=== PATIENT | female | born 1965 ===

== ENCOUNTER 2020-09-05 11:00 | Inpatient (IN) | payer OTHER ==
[~2020-09-05] VITALS: Ht 162.6 cm; Wt 81.6 kg
[2020-09-05] MEDS ORDERED: LIPITOR40 M1 PO (15:05)
[2020-09-05] MEDS ORDERED: CARVEDILOL25 M1 PO (15:05)
[2020-09-05] MEDS ORDERED: GABAPENTIN300 M2 PO (15:06)
[2020-09-05] MEDS ORDERED: CARDURA XL4 MG PO (15:06)
[2020-09-05] MEDS ORDERED: DULCOLAX5 MG PO (15:07)
[2020-09-05] MEDS ORDERED: LEVOTHYROXINE25 MCG PO (15:07)
[2020-09-05] MEDS ORDERED: LOSARTAN POTAS100 MG PO (15:07)
[2020-09-05] MEDS ORDERED: HYDRALAZINE HC100 MG PO (15:07)
[2020-09-05] MEDS ORDERED: KAPVAY0.1 MG PO (15:08)
[2020-09-05] MEDS ORDERED: LANTUS SOL100 UNIT/1 (15:08)
[2020-09-05] MEDS ORDERED: HUMULIN R500 UNIT/2 (15:09)
[2020-09-16] MEDS ORDERED: HYOSCYAMINE0.125 M1 SL (09:51)
[2020-09-16] MEDS ORDERED: INTESTINEX680 M1 PO (09:52)
== END 2020-09-16 11:12 | disposition home or self-care (01) | DRG 331 ==
LOC: SURH 09-12 07:00 → O/R 09-12 08:51 → SURG 09-12 08:51 → SURH 09-12 11:00 → SURG 09-12 15:19
PROVIDERS: ADMIT Surgery; ATTEND Surgery
PROC: 0DTF4ZZ Resection of Right Large Intestine, Percutaneous Endoscopic Approach (ICD-10-PCS; principal; 2020-09-12 07:00)
DX: D12.2 Benign neoplasm of ascending colon (principal); R59.0 Localized enlarged lymph nodes